=== PATIENT | female | born 1955 | race Caucasian/White ===

== ENCOUNTER 2016-10-15 19:20 | Emergency (ER) ==
[2016-10-15 19:40] VITALS: BP 152/72
[2016-10-15] MEDS ORDERED: BOOSTRIX VACCINE IM ONE (19:50)
[2016-10-15] MEDS ORDERED: XYLOCAINE-MPF 1% INJ ONE (19:51)
[2016-10-15] MEDS ORDERED: XYLOCAINE-MPF 1% 5 ML ONE (19:56)
--- NOTE | 2016-10-15 20:00 | PROVIDER DOCUMENTATION ---
HPI-Musculoskeletal Pain/Inj - GENERAL Chief Complaint: Extremity Injury Stated Complaint: @1845 LT FT INJURY/BLEEDING Time Seen by Provider: 10/15/16 19:48 Source: patient - HX OF PRESENT ILLNESS-MUSKULOSKELTAL Nature of Presenting Problem: 60 y/o WF c/o dropping long on her left foot, 4th and fifth distal toes at 1845 today. Was walking outside carrying a log to put on the fireplace when the log dropped. It began bleeding so she came in for evaluation. Ambulatory, toes just are painful. denies other injuries. Quality of Pain: reports: aching Severity in ED: mild Onset/Duration: 1-3 hours ago Timing: still present, constant Modifying Factors: improves with: nothing Any recent injury?: Yes Locality of Occurance: Home Similar Symptoms Previously?: No Recently seen or treated by another doctor?: No Review of Systems - Adult - REVIEW OF SYSTEMS - ADULT Constitutional: reports: no symptoms reported. denies: chills, fever, fatique Eyes: reports: no symptoms reported. denies: blurred vision, double vision, eye pain Ears, Nose, Mouth & Throat: reports: no symptoms reported. denies: ear pain, nose pain, throat pain Cardiovascular: reports: no symptoms reported. denies: chest pain, palpitations Respiratory: reports: no symptoms reported. denies: cough, shortness of breath Gastrointestinal: reports: no symptoms reported. denies: abdominal pain, nausea , vomiting Genitourinary: reports: no symptoms reported Musculoskeletal: reports: see HPI, joint pain. denies: bone pain, back pain, muscle aches, neck pain Integumentary: reports: see HPI, other. denies: rash Neurological: reports: no symptoms reported. denies: headache/migraines Psychiatric: reports: no symptoms reported Endocrine: reports: no symptoms reported Hematologic/Lymphatic: reports: no symptoms reported Allergic/Immunologic: reports: no symptoms reported All Other Systems: Reviewed and Negative Past History - Adult - PAST MEDICAL HISTORY-ADULT Review of Records: reports: Old Records Reviewed, Nursing Assessment Review, Medications Reviewed, Social history reviewed & non-contributory. Major Childhood Illnesses: reports: denies history Cardiovascular: reports: HTN, hyperlipidemia Respiratory: reports: denies history Gastrointestinal: reports: denies history Obstetrical/Gynecological: reports: denies history Genitourinary: reports: denies history Musculoskeletal: reports: denies history Neurological: reports: denies history Endocrine/Immune: reports: thyroid disorder (thyroid disease) Other Conditions: reports: other cancer (throat cancer) - PRIOR SURGERIES/PROCEDURES Surgical/Procedure History: reports: hysterectomy, , other (scope of throat, biopsy) - IMMUNIZATION STATUS Childhood Immunizations: See Nurse Assessment Flu Vaccine: See Nurse Assessment - FAMILY HISTORY Family History: reviewed, not pertinent - SOCIAL HISTORY Smoking: denies Substance Use: none/never Alcohol Use Frequency: never Physical Exam-Injury Related - Physical Exam-Injury Related Initial Vital Signs Reviewed: Yes General Appearance: appears well, alert, no apparent distress Eyes: PERRL/EOMI, pink conjunctivae Head, Ears, Nose, Mouth & Throat: normocephalic/atraumatic, moist mucous membranes Neck: non-tender, full range of motion, supple, normal inspection. negative: C- spine tenderness Respiratory: chest non-tender, lungs clear, normal breath sounds, no pleuratic chest pain, no respiratory distress, no accessory muscle use. negative: respiratory distress, decreased breath sounds, accessory muscle use, crackles, rales, rhonchi, stridor, wheezing Cardiovascular: normal peripheral pulses, regular rate, rhythm, no edema, no gallop, no JVD, no murmur Peripheral Pulses: dorsalis-pedis (R): 2+, dorsalis-pedis (L): 2+ Lymphatic: no adenopathy Extremity: normal range of motion, non-tender, normal gait, no pedal edema, no calf tenderness, normal capillary refill, tenderness, other (there are two small lacerations, one on the 4th and one of the fifth digits of the left foot 1 cm each) Integumentary: normal color, warm/dry, laceration (see above) Neurologic: grossly normal, no motor/sensory deficits Psych/Mental Status: AL, normal mood/affect, normal thought content, normal thought process, oriented x 3 - Glascow Coma Score Best Eye Response ([place]): (4) open spontaneously Best Verbal Response ([place]): (5) oriented Best Motor Response ([place]): (6) obeys commands Progress - PLAN OF CARE/RESULTS Progress/Plan/Lab Results: Vital Signs Temp Pulse Resp BP Pulse Ox 10/15/16 19:38 97.5 F L 86 16 152/72 99 hydrochlorothiazide Adverse Reaction (Verified 10/15/16 19:43) FLUSHING Amlodipine [Norvasc] 2.5 mg PO DAILY 10/15/12 LISINOpril [Prinivil] 40 mg PO DAILY 10/15/12 SIMVAstatin [Zocor] 10 mg PO QHS 10/15/12 Levothyroxine [Synthroid] 112 mcg PO DAILY 04/11/14 Alprazolam [Xanax] 0.5 mg PO DAILY 10/15/16 Orders Category Date Time Status lac [Laceration Set up] DIRECTED Care 10/15/16 20:00 Active FOOT COMPLETE LEFT [RAD] Stat Exams 10/15/16 19:46 Taken CefAZOLIN [Kefzol] Med 10/15/16 20:02 Once 1 gm IM NOW ONE Diph,Pertuss(Acell),Tet Vac/Pf [Boostrix Vaccine] Med 10/15/16 19:50 Discontinued 0.5 ml IM .ONCE ONE Lidocaine 1% Pf [Xylocaine-Mpf 1%] Med 10/15/16 19:51 Discontinued 10 ml INJ NOW ONE Lidocaine 1% Pf [Xylocaine-Mpf 1%] 5 ml Med 10/15/16 19:56 Discontinued .ROUTE As Directed - XRAY 1 XRAY: Left XRAY Study: Foot Impression: Abnormal (fx to distal phalynx of the 4th toe ER prelim) Procedures - LACERATION/WOUND REPAIR/FB Left Foot Wound Length: 3 cm total Wound's Depth, Shape: superficial Wound Explored/Foreign Body: clean Irrigated with Saline?: Yes Prepped with: Joe Benjamin Utilized Anesthetic: 1%, Lidocaine/Xylocaine Volume of Anesthetic (ml's): 5 Wound Debrided: minimal Wound Repaired with: Sutures Suture Size/Type: 4.0, Non-Absorbable Number of Sutures: 6 Sterile Dressing Applied?: Yes Splint Applied?: No Sling Applied?: No Post Procedure Neurovascular Exam: Intact - SPLINTING Left Lower Extremity Pre-Procedure Neurovascular Exam: Intact Pre-Fabricated Splint: Other (post op shoe) Applied By: penology professor Departure - Departure Time of Disposition Order: 20:03 DIAGNOSIS: Open fracture of toe of left foot Qualifiers: Encounter type: initial encounter Toe: lesser toe Phalanx: distal Fracture alignment: nondisplaced Qualified Code(s): S92.535B - Nondisplaced fracture of distal phalanx of left lesser toe(s), initial encounter for open fracture Disposition: HOME 01 Certified Medical Emergency: Emergent Condition: Stable Additional Instructions: Follow up with Dr. Espino, orthopedic ED Follow Up Instructions: You have been treated by a care provider in the Emergency Department. These instructions are being provided to you so you can have an understanding of how to care for yourself upon discharge. Upon discharge from the Emergency Department, you are responsible for making arrangements for follow-up care by a physician of your choice. Take all prescribed medications as directed. Return to the Emergency Department immediately for any new or worsening symptoms. You may call the Physician Referral phone number at [phone] to obtain a list of Physicians who are taking new patients. Prescriptions: Cephalexin [Keflex] 500 mg PO BID #20 capsule Hydrocodone/APAP 7.5 mg/325 mg [[place]-7.5] 1 each PO Q6H PRN PRN #20 tablet PRN Reason: Pain Referrals: Migue Patel MD [Primary Care Provider] - Jaime Espino MD [STAFF PHYSICIAN] - Instructions: Toe Fracture, [id number] Attestation - Physician/ Mid-level Attestation Patient care was provided by Mid-level provider (GOLF COURSE SUPERINTENDENT/PA):: Yes Mid-level provider:: Leigh Zavala Mid-level documentation review:: The Mid-level provider documentation, treatment plan and medical decision making was reviewed by the physician who agrees with all treatment and medical decision making by the P.
[2016-10-15] MEDS ORDERED: KEFZOL IM ONE (20:02)
[2016-10-15] MEDS ORDERED: STERILE WATER INJ. ONE (20:18)
--- NOTE | 2016-10-16 08:26 | Diag Imaging Result Document ---
PROCEDURE NAME: FOOT COMPLETE LEFT - 10/15/2016 PLAIN RADIOGRAPH OF THE LEFT FOOT, 3 VIEWS: COMPARISON: None available. FINDINGS: There is an apparent comminuted fracture involving the tuft of the distal phalanx of the 4th toe. There is milder irregularity at the distal phalanx of the 5th toe. This could represent a nondisplaced fracture. No other discrete fracture, dislocation, or significant intrinsic osseous lesion is appreciated. The joint spaces appear to be preserved. IMPRESSION: Irregularity at the distal phalanges of the 4th and 5th toes that probably represent fractures. Please correlate clinically.
== END 2016-10-15 21:05 | disposition home or self-care (01) ==
LOC: ED 19:20
DX: S92.535B Nondisplaced fracture of distal phalanx of left lesser toe(s), initial encounter for open fracture (principal); M79.675 Pain in left toe(s); I10 Essential (primary) hypertension; E78.5 Hyperlipidemia, unspecified; E07.9 Disorder of thyroid, unspecified; Z79.899 Other long term (current) drug therapy; Z85.818 Personal history of malignant neoplasm of other sites of lip, oral cavity, and pharynx; W20.8XXA Other cause of strike by thrown, projected or falling object, initial encounter
CPT/HCPCS: 90471; 90715; 96372; J0690